=== PATIENT | female | born 1970 | race Caucasian/White ===

== ENCOUNTER 2020-12-25 07:49 | Emergency (ER) | payer BC, SELFPAY ==
[2020-12-25 07:54] VITALS: BP 170/84; PULSE 80; RESP 18; TEMP 36.3; O2SAT 100
[2020-12-25] MEDS: predniSONE 20 MG TABLET 60 MG PO (08:13)
[2020-12-25] MEDS: EPINEPHrine HCL INJ 1 MG/ML AMPUL 0.3 MG IM (08:13)
--- NOTE | 2020-12-25 09:01 | PC.NURSE ---
Pt notes improvement to symptoms and facial redness and swelling has improved
--- NOTE | 2020-12-25 10:15 | ED.ALLEREA ---
HPI - Allergic Reaction General Chief complaint: Allergic Reaction Stated complaint: allergic reaction Time Seen by Provider: 12/25/20 07:59 Source: patient and RN notes reviewed Mode of arrival: ambulatory Limitations: no limitations History of Present Illness HPI narrative: Patient woke up this morning with itching skin rash different parts of her body, swollen face and eyelids. She denies any difficulty swallowing or breathing. Patient reported having new salad dressing last night. History of allergy to latex and other stuff. Related Data Allergies Allergy/AdvReac Type Severity Reaction Status Date / Time latex Allergy Mild Rash Verified 01/27/14 10:10 avocado Allergy Anaphylaxis Verified 12/25/20 07:58 fexofenadine AdvReac Mild had milk Verified 01/27/14 10:10 production from breasts from it Review of Systems Review of Systems: CONSTITUTIONAL: Denies fever, chills, or sweats. EYES: Denies visual changes, redness, or discharge. ENT: Denies rhinorrhea, congestion, sore throat, or otalgia. CARDIOVASCULAR: Denies chest pain, palpitations, or edema. RESPIRATORY: Denies cough or dyspnea. GASTROINTESTINAL: Denies abdominal pain, nausea, vomiting, or diarrhea. GENITOURINARY: Denies dysuria or hematuria. SKIN: Denies rash or itching. MUSCULOSKELETAL: Denies back pain, joint pain, or myalgia. NEUROLOGIC: Denies headache, numbness, or weakness. PSYCHIATRIC: Denies anxiety or depression. Exam Narrative: General appearance: Well-developed, well-nourished Skin: Scattered rash, swelling face and eyelids, Head: Normocephalic, nontraumatic Eyes: Clear conjunctiva ENT: Oropharynx normal, ears normal, nose normal Neck: Supple, nontender Chest and respiratory: Airway patent, no respiratory distress, no accessory muscle use Heart: Regular rate/rhythm Abdomen: Soft, nontender, no organomegaly, quiet bowel sounds Vascular: Normal peripheral pulses, normal capillary refill. Musculoskeletal: Normal range of motion, nontender back Neurologic: Alert and oriented ?3, [employer] is normal as tested, no gross motor deficit Course Course Emergency Course: Improving Vital Signs Vital signs: Vital Signs Temperature 36.3 C L 12/25/20 07:54 Pulse Rate 80 12/25/20 07:54 Respiratory Rate 18 12/25/20 07:54 Blood Pressure 170/84 H 12/25/20 07:54 Pulse Oximetry 100 12/25/20 07:54 Temperature 36.3 C L 12/25/20 07:54 Pulse Rate 80 12/25/20 07:54 Respiratory Rate 18 12/25/20 07:54 Blood Pressure 170/84 H 12/25/20 07:54 Pulse Oximetry 100 12/25/20 07:54 MDM - Allergic Reaction MDM Narrative Medical decision making narrative: Acute allergic reaction Critical Care Time Critical Care Time Critical Care Time: No Discharge Plan Discharge Clinical Impression: Allergic reaction Qualifiers: Encounter type: initial encounter Qualified Code(s): T78.40XA - Allergy, unspecified, initial encounter Patient Disposition: Home, Self-Care Condition: Improved Instructions: Antibiotic Form, General Allergic Reaction (ED) Additional Instructions: Return if symptoms are worsening , call your family physician for appointment, take Tylenol as as needed for aches and pain, continue home medications. Prescriptions: New prednisone 20 mg tablet 40 mg PO DAILY 5 Days Qty: 10 RF: 0 Follow-up/Referrals: Denis Vilchis MD [Primary Care Provider] - Stand Alone Forms: Work/School Release IP
[2020-12-25 10:35] VITALS: BP 134/81; PULSE 80; RESP 16; O2SAT 100
== END 2020-12-25 10:36 | disposition home or self-care (01) ==
PROVIDERS: Emergency Provider Emergency Medicine; PCP Family Medicine Adolescent Medicine
DX: T78.40XA Allergy, unspecified, initial encounter (principal)
CPT/HCPCS: 96372; 99283; J0171; J7512

== ENCOUNTER 2021-01-15 02:32 | Day surgery (SDC) | payer BC, SELFPAY ==
[2021-01-03 13:33] VITALS: BMI 31.8
[2021-01-15 06:52] VITALS: BP 149/83; PULSE 85; RESP 17; TEMP 36.6; O2SAT 98; BMI 31.8
[2021-01-15] MEDS: LACTATED RINGERS 1,000 ML 150 ML IV CONT (07:09)
[2021-01-15 07:14] LABS: Glucose Point of Care 157 mg/dl (65-105)
--- NOTE | 2021-01-15 07:45 | PM.HPGS ---
History of Present Illness History of Present Illness Consent: Risks, benefits, and alternatives have been discussed and questions answered. Patient agrees to proceed with procedure. Chief complaint: neoplasm screening Narrative: Meche Beard is a 50 year old female here for screening colonoscopy, last one 10 years ago. Review of Systems Constitutional: Constitutional: Denies headache(s) and Denies weakness Eyes: Eyes: Denies blurry vision ENT: Reports Normal hearing present, Denies headache(s) and Denies neck pain Cardiovascular: Cardiovascular: Denies chest pain and Denies dyspnea Respiratory: Respiratory: Denies dyspnea Gastrointestinal: Gastrointestinal: Reports no additional gastrointestinal complaints Genitourinary: Genitourinary: Denies dysuria Musculoskeletal: Musculoskeletal: Denies neck pain Integumentary/Breasts: Skin/Breast: Denies dry skin Neurologic: Reports Normal hearing present, Denies headache(s) and Denies weakness Psychiatric: Psychiatric: Denies anxiety Endocrine: Endocrine: Denies change in body appearance Hematologic/Lymphatic: Hematologic/Lymphatic: Denies easy bleeding Allergic/Immunologic: Allergic/Immunologic: Denies urticaria PMFSH Past Medical History Medical History (Updated 01/15/21 @ 07:46 by Kenny Munguia MD) Colon cancer screening Social History Social History Smoking status: Never smoker Substance use type: does not use Living arrangements: with family Meds Home Medications and Allergies Home Medications Medication Instructions Recorded Confirmed Type atorvastatin 20 mg PO DAILY 01/03/21 01/15/21 History lisinopril 10 mg PO DAILY 01/03/21 01/15/21 History metformin 500 mg PO DAILY 01/03/21 01/15/21 History montelukast 10 mg PO DAILY 01/03/21 01/15/21 History Allergies Allergy/AdvReac Type Severity Reaction Status Date / Time latex Allergy Mild Rash Verified 01/15/21 06:51 avocado Allergy Anaphylaxis Verified 01/15/21 06:51 fexofenadine AdvReac Mild had milk Verified 01/15/21 06:51 production from breasts from it Vital Signs Vital Signs - 24 hr 01/15/21 06:52 Temperature 98 F Pulse Rate 85 Respiratory Rate 17 Blood Pressure 149/83 H Pulse Oximetry 98 Exam Const: General: comfortable and no acute distress HENMT: General nose exam: Normal nares present Eyes: General: appearance normal, both eyes and all related structures Neck: Neck: no JVD Resp: Auscultation: clear to auscultation bilaterally Cardio: Rate: regular rate Rhythm: regular rhythm GI: Inspection: non-distended GI Palp: Yes Soft to palpation Skin: General skin exam: normal color Neuro: General: gait normal Speech: normal speech Extrem: General: normal to inspection Psych: Mental Status: mental status grossly normal Assessment and Plan Assessment and plan (1) Colon cancer screening: Code(s): Z12.11 - Encounter for screening for malignant neoplasm of colon Status: Acute Assessment and Plan: colonoscopy
--- NOTE | 2021-01-15 07:48 | P.PNAN_ITS ---
Anes - Initial Pre Proc Eval Procedure: Operation Date: 01/15/21 08:00 Proposed Procedures p Screening Colonoscopy - Kenny Munguia MD Date/Time: 01/15/21 07:48 Surgeon: Kenny Munguia MD Pre Op Diagnosis: neoplasm screening Patient Data Age: 50 Gender: F Height: 1.63 m Weight: 84.1 kg Last Vital Signs Temp 98 F 01/15/21 06:52 Pulse 85 01/15/21 06:52 Resp 17 01/15/21 06:52 BP 149/83 H 01/15/21 06:52 Pulse Ox 98 01/15/21 06:52 Allergies Allergy/AdvReac Type Severity Reaction Status Date / Time latex Allergy Mild Rash Verified 01/15/21 06:51 avocado Allergy Anaphylaxis Verified 01/15/21 06:51 fexofenadine AdvReac Mild had milk Verified 01/15/21 06:51 production from breasts from it Home Medications Medication Instructions Recorded Confirmed Type atorvastatin 20 mg PO DAILY 01/03/21 01/15/21 History lisinopril 10 mg PO DAILY 01/03/21 01/15/21 History metformin 500 mg PO DAILY 01/03/21 01/15/21 History montelukast 10 mg PO DAILY 01/03/21 01/15/21 History Laboratory Tests 01/15/21 07:12 POC Capillary Glucose 157 mg/dl H mg/dl (65-105) Patient hx anesthesia problems: none Family hx anesthesia problems: none Results Review: All pre-operative results and documents have been reviewed as part of the pre-operative evaluation. [facility] Past Medical History Medical History (Updated 01/15/21 @ 07:46 by Kenny Munguia MD) Colon cancer screening Social History Social History Smoking status: Never smoker Substance use type: does not use Living arrangements: with family Anes - Eval Final PreProcedure Day of Procedure 01/15/21 07:48 Patient weight: obese Heart: regular rate and rhythm Lungs: clear to auscultation Airway: Mallampati scale class II Neurological: alert and oriented Last oral intake: >/= 8 hours ASA classification: III Emergent: no Anesthetic plan: proceed Anesthesia type and monitoring: general GIVS and standard monitoring Results Review: All pre-operative results and documents have been reviewed as part of the pre-operative evaluation. Informed Consent: The patient's anesthetic plan and its attendant risks and benefits were discussed with the patient/family/POA. Questions were solicited and answers provided to the satisfaction of the patient/family/POA.
[2021-01-15 08:10] VITALS: BP 101/53; PULSE 70; RESP 18; O2SAT 99
[2021-01-15 08:20] VITALS: BP 134/78; PULSE 72; RESP 20; O2SAT 99
[2021-01-15 08:30] VITALS: BP 137/70; PULSE 71; RESP 18; O2SAT 99
== END 2021-01-15 08:53 | disposition home or self-care (01) ==
PROVIDERS: PCP Family Medicine Adolescent Medicine; Visit Provider Internal Medicine Gastroenterology
PROC: 0DJD8ZZ Inspection of Lower Intestinal Tract, Via Natural or Artificial Opening Endoscopic (ICD-10-PCS; CPT 45378; principal; 2021-01-15 08:00)
DX: Z12.11 Encounter for screening for malignant neoplasm of colon (principal); K64.8 Other hemorrhoids; E66.9 Obesity, unspecified; Z68.31 Body mass index [BMI] 31.0-31.9, adult; Z79.84 Long term (current) use of oral hypoglycemic drugs
CPT/HCPCS: 45378; 82948; J2704; J7120